=== PATIENT | male | born 1955 | race Caucasian/White ===

== ENCOUNTER 2017-09-22 06:00 | Emergency (ER) | payer MEDICAID | END 2017-09-22 06:34 | disposition home or self-care (01) | LOC: D.ER 06:00 | DX: S01.94XA Puncture wound with foreign body of unspecified part of head, initial encounter (principal); X58.XXXA Exposure to other specified factors, initial encounter; Y93.89 Activity, other specified; Y92.828 Other wilderness area as the place of occurrence of the external cause; F17.200 Nicotine dependence, unspecified, uncomplicated ==

== ENCOUNTER → 2017-11-27 14:14 | Outpatient (CLI) | payer OTHER | END | disposition home or self-care (01) | LOC: D.RAD 14:00 | DX: Z02.71 Encounter for disability determination (principal) ==